=== PATIENT | male | born 1970 | race African-American/Black ===

== ENCOUNTER 2016-03-28 01:55 | Emergency (ER) | payer OTHER ==
[2016-03-28 02:03] VITALS: BP 165/91
[2016-03-28] MEDS ORDERED: NORCO-7.5 PO ONE (02:14)
[2016-03-28] MEDS ORDERED: PEN VK PO ONE (02:15)
--- NOTE | 2016-03-28 02:20 | PROVIDER DOCUMENTATION ---
HPI-EENT General - General Chief Complaint: Toothache Stated Complaint: TOOTH ABSCESS Time Seen by Provider: 03/28/16 02:06 Source: patient Allergies/Adverse Reactions: Patient Allergies Allergy/AdvReac Type Severity Reaction Status Date / Time No Known Allergies Allergy Verified 03/28/16 01:58 - History of Present Illness-EENT General Nature of Presenting Problem: 45 year old M presents to the ED with a cc of left lower dental pain with an onset of 1 week ago. EENT Location: reports: dental Quality of Pain: reports: aching Severity: reports: mild Onset/Duration: reports: 1 week ago Timing: reports: still present Prearrival Treatment: Initiated over the counter meds Associated Symptoms: reports: tooth pain Locality of Occurance: Home Similar Symptoms Previously?: No Recently seen or treated by another doctor?: No - Throat/Dental Throat/Dental Problem Symptoms: reports: toothache Recently seen a dentist or have an appointment?: No Review of Systems - Adult - REVIEW OF SYSTEMS - ADULT Constitutional: denies: chills, fever Eyes: reports: no symptoms reported Ears, Nose, Mouth & Throat: reports: mouth/dental pain. denies: mouth swelling Cardiovascular: reports: no symptoms reported Respiratory: denies: cough, shortness of breath Gastrointestinal: reports: no symptoms reported Genitourinary: reports: no symptoms reported Musculoskeletal: reports: no symptoms reported Integumentary: reports: no symptoms reported Neurological: reports: no symptoms reported Psychiatric: reports: no symptoms reported Endocrine: reports: no symptoms reported Hematologic/Lymphatic: reports: no symptoms reported Allergic/Immunologic: reports: no symptoms reported All Other Systems: Reviewed and Negative Past History - Adult - PAST MEDICAL HISTORY-ADULT Review of Records: reports: Nursing Assessment Review, Medications Reviewed Major Childhood Illnesses: reports: denies history - PRIOR SURGERIES/PROCEDURES Surgical/Procedure History: reports: orthopedic (extremity) - IMMUNIZATION STATUS Childhood Immunizations: See Nurse Assessment Flu Vaccine: See Nurse Assessment - FAMILY HISTORY Family History: reviewed, not pertinent - SOCIAL HISTORY Smoking: chew Provider spent 3-5 mins advising pt. on dangers of tobacco.: Discussed manners to quit use, and f/u contacts for add'l counseling. Substance Use: none/never Alcohol Use Frequency: never Physical Exam- EENT - Physical Exam EENT Initial Vital Signs Reviewed: Yes General Appearance: appears well, alert, no apparent distress Throat Exam: dental tenderness (left lower rear most molar) Respiratory: chest non-tender, lungs clear, normal breath sounds Cardiovascular: normal peripheral pulses, regular rate, rhythm, no edema Integumentary: normal color, normal turgor, warm/dry Psych/Mental Status: AL, normal mood/affect, normal thought content, normal thought process, oriented x 3 Progress - PLAN OF CARE/RESULTS Progress/Plan/Lab Results: plan of care: medications Orders Category Date Time Status Hydrocodone/APAP 7.5 mg/325 mg [[place]-7.5] Med 03/28/16 02:14 Discontinued 1 each PO NOW ONE Penicillin V Potassium [Pen Vk] Med 03/28/16 02:15 Discontinued 500 mg PO NOW ONE Vital Signs - 24 hr 03/28/16 02:02 Temperature 98.2 F Pulse Rate 58 L Respiratory 16 Rate Blood Pressure 165/91 O2 Sat by Pulse 98 Oximetry Pt given results and will be d/c home w/ rx to follow up with PCP. Pt verbally understood instructions. PT remained clinically stable throughout the course of the ED stay and will return if symptoms worsen. Departure - Departure Time of Disposition Order: 02:20 DIAGNOSIS: Pain, dental Disposition: HOME 01 Certified Medical Emergency: Emergent Condition: Good Additional Instructions: Follow up with dentist. Return to ED for any new or worsening symptoms ED Follow Up Instructions: You have been treated by a care provider in the Emergency Department. These instructions are being provided to you so you can have an understanding of how to care for yourself upon discharge. Upon discharge from the Emergency Department, you are responsible for making arrangements for follow-up care by a physician of your choice. Take all prescribed medications as directed. Return to the Emergency Department immediately for any new or worsening symptoms. You may call the Physician Referral phone number at [phone] to obtain a list of Physicians who are taking new patients. Prescriptions: Hydrocodone/Acetaminophen [[place] 7.5-325 Tablet] 1 each PO Q4-6H PRN PRN #20 tablet PRN Reason: Pain Penicillin V Potassium [Pen Vk] 500 mg PO Q6HR #80 tablet Referrals: None,PCP [Primary Care Provider] - Attestation - Scribe Verification/Attestation Scribe:: Katrin Davis Acting as Scribe for:: Johnny iYn Scribe documention review:: This chart was documented by a scribe and accurately reflects the service the provider performed and the decisions made by the provider. Physician Attestation - Physician Attestation I, the provider, attest to the following statement:: Johnny Yin Physician documentation Attestation:: This documentation recorded by the scribe accurately reflects the service I personally performed and the decisions made by me.
== END 2016-03-28 02:28 | disposition home or self-care (01) ==
LOC: ED 01:55
DX: K08.89 Other specified disorders of teeth and supporting structures (principal); F17.220 Nicotine dependence, chewing tobacco, uncomplicated; Z71.6 Tobacco abuse counseling
CPT/HCPCS: 99282